=== PATIENT | female | born 1970 | race Caucasian/White ===

== ENCOUNTER 2017-02-21 10:46 | Day surgery (SDC) | payer BC ==
[~2017-02-21] VITALS: Ht 157.5 cm; Wt 108.0 kg
[~2017-02-21 10:46] MED LIST: AMLODIPINE BESYL5 MG PO; FENOFIBRATE54 M1 PO; FLONASE16 G1 BOTH NARES; HYZAAR 50-121 TABLET PO; METFORMIN HCL1000 MG PO; PROAIR HFA8.5 GM IH; PULMICORT FLE180 MCG IH; SIMVASTATIN40 MG PO; SINGULAIR10 MG PO; XYZAL5 MG PO
[2017-02-21] MEDS ORDERED: NASAL & SINUS D30 MG PO (11:14)
[2017-02-21 11:22] VITALS: BP 117/56
[2017-02-21 12:26] LABS: POINT-OF-CARE METER ID UU14174212
[2017-02-21 14:43] LABS: POINT-OF-CARE METER ID UU13113675; POINT-OF-CARE USER ID 515036437
[2017-02-21 15:07] VITALS: BP 112/62
[2017-02-21 16:18] VITALS: BP 110/53
== END 2017-02-21 16:20 | disposition home or self-care (01) ==
LOC: SDC 10:46
PROVIDERS: Obstetrics & Gynecology
DX: N93.8 Other specified abnormal uterine and vaginal bleeding (principal); N84.1 Polyp of cervix uteri; E11.8 Type 2 diabetes mellitus with unspecified complications; I10 Essential (primary) hypertension; E78.5 Hyperlipidemia, unspecified; K58.9 Irritable bowel syndrome, unspecified; J45.909 Unspecified asthma, uncomplicated; F41.9 Anxiety disorder, unspecified; E66.9 Obesity, unspecified; Z68.41 Body mass index [BMI] 40.0-44.9, adult; Z79.84 Long term (current) use of oral hypoglycemic drugs; Z79.899 Other long term (current) drug therapy; Z87.891 Personal history of nicotine dependence
CPT/HCPCS: 82948; 88305; J0690; J1885; J3010